=== PATIENT | female | born 1960 | race Caucasian/White ===

== ENCOUNTER 2016-09-21 15:10 | Emergency (ER) | payer OTHER ==
[~2016-09-21] VITALS: Ht 152.4 cm; Wt 82.4 kg
[~2016-09-21 15:10] MED LIST: MELO15TA3 PO; NXM/40 PO; SIMV40TA2 PO
[2016-09-21 15:12] VITALS: TEMP 36.5; Ht 152.4 cm; Wt 82.4 kg
--- NOTE | 2016-09-21 15:35 | EMERGENCY ROOM VISIT NOTE ---
History Report prepared by Jm: Charlotte Sorenson Under the Supervision of: Dr. Jb Summers M.D. First contact with patient: 15:17 Chief Complaint: HEAD PAIN Stated Complaint: HEAD, NECK, ELBOW PAIN, N, RINGING IN BOTH EARS History of Present Illness The patient is a 56 year old female who presents to the Emergency Room with complaints of persistent headache starting 1330 today. The patient was at work today when she went to sit down in a chair. The back of the chair broke off the she fell backwards onto the concrete ground. She remembers seeing some lights and woke up on her stomach. She has some ringing in her ears and pain on the back of her neck. She has a headache which is abnormal for her. She has elbow pain, some dizziness, and nausea. She denies any vomiting. She daughter reports that she seems quieter. She denies any vision changes, chest pain, SOB, or pain and swelling in the arms. She did have some abdominal pain at first, but does not anymore. Her tetanus is up to date. Source of History: patient, family Onset: 1330 today Position: head Quality: ache Timing: other (persistent) Associated Symptoms: + nausea, + neck pain, No SOB, No chest pain Note: Pt reports ringing in ears, elbow pain, dizziness. Pt denies vision changes, pain or swelling in arms. Review of Systems See HPI for pertinent positives & negatives. A total of 10 systems reviewed and were otherwise negative. Past Medical & Surgical Medical Problems: (1) Acid reflux (2) High cholesterol Old medical records were reviewed. Nurse's notes were reviewed and I agree with. Family History Diabetes mellitus FH: heart disease FHx: cancer Social History Smoking Status: Never Smoker Alcohol Use: none Marital Status: single Housing Status: lives alone Occupation Status: employed Current/Historical Medications No Active Prescriptions or Reported Meds Allergies Coded Allergies: Tramadol (Unverified Allergy, Intermediate, [employer] [place], 02/25/10) Physical Exam Vital Signs Date Time Temp Pulse Resp B/P Pulse Ox O2 Delivery O2 Flow Rate FiO2 09/21/16 17:06 64 18 128/77 97 09/21/16 15:12 36.5 69 18 160/98 98 Room Air Physical Exam General: Non ill appearing middle aged female, no acute distress, awake and oriented x3, GCS 15. Well developed well nourished, breathing comfortably on room air. Normal speech HEENT: Normal cephalic atraumatic. Pupils are equal round and reactive to light. Extraocular movements are intact. Oropharynx is pink with moist mucous membranes. No swelling of the mouth lips or tongue. Neck: Supple with a midline trachea. No meningeal signs or stiffness, no JVD or bruits. No Stridor. Chest: Clear to auscultation bilaterally. No wheezes or rhonchi. No increased work of breathing. Heart: regular rate and rhythm. Abdomen: Soft nontender, nondistended without rebound guarding or rigidity. Extremities: No cyanosis clubbing or edema. No calf tenderness or assymetry. Minimal tenderness to the left elbow with palpation and movement. Spine/Back. Mildly tender to the lower cervical spine. No CVA tenderness Skin: Good turgor without rashes. Neurologic exam: Cranial nerves two through 12 are intact. Motor and sensation are intact and symmetrical throughout. Medical Decision & Procedures ER Provider Diagnostic Interpretation: X-ray results as stated below per interpretation by me and the radiologist. Radiology results as stated below per my review and radiologist interpretation: LEFT ELBOW 3 VIEWS CLINICAL HISTORY: Left elbow injury. FINDINGS: 3 views of the left elbow are obtained. No prior studies are available for comparison at the time of dictation. The skeletal structures are well mineralized. No fracture is seen. A lucency projecting over the medial humeral condyle on the AP view likely represents a skinfold. The joint spaces of the elbow are well-maintained. Minimal degenerative spurring is noted along the radial head. There is no joint effusion. The overlying soft tissues are within normal limits. IMPRESSION: There is no radiographic evidence of left elbow fracture. Electronically signed by: Dougie Horvath M.D. 09/21/2016 4:05 PM Dictated Date/Time: 09/21/2016 4:[address] DOSE: HISTORY: Trauma. Pain. eval for trauma TECHNIQUE: Multiaxial CT images of the cervical spine were performed and reformatted in the sagittal and coronal plane without the use of contrast. COMPARISON: None. FINDINGS: No fractures. No subluxation. Prevertebral soft tissues and the C1-C2 interval are intact. No pneumothorax. IMPRESSION: No fractures within the cervical spine. Electronically signed by: Satish Back M.D. 09/21/2016 3:57 PM Dictated Date/Time: 09/21/2016 3:[address] SCAN OF THE BRAIN WITHOUT IV CONTRAST CLINICAL HISTORY: Trauma. Head injury. COMPARISON STUDY: CT of the brain dated 02/25/2010. TECHNIQUE: Unenhanced axial CT scan of the brain is performed from the vertex to the skull base. Automated dose control exposure was utilized. CT DOSE: 1271.55 mGy.cm FINDINGS: Brain parenchyma: The brain parenchyma is normal in appearance. There is no hemorrhage, mass effect, or evidence of acute territorial ischemia by CT criteria. [place]-white matter is preserved. No extra-axial fluid collection is seen. Ventricles, sulci, cisterns: Normal in configuration. Intracranial vasculature: The visualized intracranial vasculature at the skull base is normal in appearance. Calvarium: There is no depressed calvarial fracture. Sinuses and mastoids: The visualized paranasal sinuses are clear. The mastoid air cells are well pneumatized. Orbits: The bony orbits are grossly intact. IMPRESSION: No acute intracranial abnormality. Electronically signed by: Dougie Horvath M.D. 09/21/2016 3:56 PM Dictated Date/Time: 09/21/2016 3:55 PM ED Course 1522: Past medical records reviewed. The patient was evaluated in room B8, and a complete history and physical examination were performed. 1641: Upon reevaluation, the patient is resting comfortably. I discussed the results and treatment plan with her. She verbalized agreement of the treatment plan. The patient was discharged home. Medical Decision Differentials include, but are not limited to; concussion, intracranial hemorrhage, cervical fracture, cervical strain, orthopedic injury. This patient comes in after suffering a mechanical fall when her chair broke. She fell backwards and hit her head . She has pain mostly in her neck and left elbow and does have some mild concussive symptoms. Given the mechanism of injury and her symptoms, I did explain the risks and benefits and did order CAT scan of the head and neck as well as an elbow x-ray. She has nothing to suggest syncope or internal injuries. She has nothing to suggest cardiac disease. She was feeling better. CAT scans were unremarkable and blood work was unremarkable as well as EKG. She will rest and drink plenty of fluids. return if: Increasing pain, worsening symptoms, fever chills, any new problems or concerns. Follow-up with her doctor this week for recheck. Impression Primary Impression: Concussion Additional Impression: Left elbow contusion Scribe Attestation The scribe's documentation has been prepared under my direction and personally reviewed by me in its entirety. I confirm that the note above accurately reflects all work, treatment, procedures, and medical decision making performed by me. Departure Information Dispostion Home / Self-Care Prescriptions No Active Prescriptions or Reported Meds Referrals No Doctor, Assigned (PCP) Forms HOME CARE DOCUMENTATION FORM, IMPORTANT VISIT INFORMATION, WORK / SCHOOL INSTRUCTIONS Patient Instructions [facility] Additional Instructions Rest. Ice intermittently. Use ibuprofen 400 mg every 6 hours as needed for pain. Take with food Return if: Increasing pain, numbness or weakness, not acting like self, any new problems or concerns Avoid strenuous activity or any further trauma to her head Follow-up with your doctor for recheck in the next couple days or return here if symptoms worsen Problem Qualifiers
--- NOTE | 2016-09-21 15:58 | DIAGNOSTIC IMAGING REPORT ---
CT SCAN OF THE BRAIN WITHOUT IV CONTRAST CLINICAL HISTORY: Trauma. Head injury. COMPARISON STUDY: CT of the brain dated 02/25/2010. TECHNIQUE: Unenhanced axial CT scan of the brain is performed from the vertex to the skull base. Automated dose control exposure was utilized. CT DOSE: 1271.55 mGy.cm FINDINGS: Brain parenchyma: The brain parenchyma is normal in appearance. There is no hemorrhage, mass effect, or evidence of acute territorial ischemia by CT criteria. [place]-white matter is preserved. No extra-axial fluid collection is seen. Ventricles, sulci, cisterns: Normal in configuration. Intracranial vasculature: The visualized intracranial vasculature at the skull base is normal in appearance. Calvarium: There is no depressed calvarial fracture. Sinuses and mastoids: The visualized paranasal sinuses are clear. The mastoid air cells are well pneumatized. Orbits: The bony orbits are grossly intact. IMPRESSION: No acute intracranial abnormality. Electronically signed by: Dougie Horvath M.D. 09/21/2016 3:56 PM Dictated Date/Time: 09/21/2016 3:55 PM
--- NOTE | 2016-09-21 15:58 | DIAGNOSTIC IMAGING REPORT ---
CERVICAL SPINE CT CT DOSE: HISTORY: Trauma. Pain. eval for trauma TECHNIQUE: Multiaxial CT images of the cervical spine were performed and reformatted in the sagittal and coronal plane without the use of contrast. COMPARISON: None. FINDINGS: No fractures. No subluxation. Prevertebral soft tissues and the C1-C2 interval are intact. No pneumothorax. IMPRESSION: No fractures within the cervical spine. Electronically signed by: Satish Back M.D. 09/21/2016 3:57 PM Dictated Date/Time: 09/21/2016 3:56 PM
--- NOTE | 2016-09-21 16:06 | DIAGNOSTIC IMAGING REPORT ---
LEFT ELBOW 3 VIEWS CLINICAL HISTORY: Left elbow injury. FINDINGS: 3 views of the left elbow are obtained. No prior studies are available for comparison at the time of dictation. The skeletal structures are well mineralized. No fracture is seen. A lucency projecting over the medial humeral condyle on the AP view likely represents a skinfold. The joint spaces of the elbow are well-maintained. Minimal degenerative spurring is noted along the radial head. There is no joint effusion. The overlying soft tissues are within normal limits. IMPRESSION: There is no radiographic evidence of left elbow fracture. Electronically signed by: Dougie Horvath M.D. 09/21/2016 4:05 PM Dictated Date/Time: 09/21/2016 4:03 PM
[2016-09-21 17:06] VITALS: BP 128/77; PULSE 64; O2SAT 97
== END 2016-09-21 17:09 | disposition home or self-care (01) ==
LOC: C.EDB 15:12
DX: S06.0X0A Concussion without loss of consciousness, initial encounter (principal); S50.02XA Contusion of left elbow, initial encounter; W07.XXXA Fall from chair, initial encounter; Y92.89 Other specified places as the place of occurrence of the external cause; Y99.0 Civilian activity done for income or pay; K21.9 Gastro-esophageal reflux disease without esophagitis; E78.00 Pure hypercholesterolemia, unspecified; Z83.3 Family history of diabetes mellitus; Z82.49 Family history of ischemic heart disease and other diseases of the circulatory system; Z80.9 Family history of malignant neoplasm, unspecified

== ENCOUNTER → 2017-06-28 | Outpatient (CLI) | payer OTHER ==
[2017-06-28 13:23] LABS: ALBUMIN 3.6 gm/dl (3.4-5.0); ALT/SGPT 52 U/L (12-78); AST/SGOT 19 U/L (15-37); BLOOD UREA NITROGEN 12 mg/dl (7-18); CALCIUM 8.4 mg/dl (8.5-10.1); CARBON DIOXIDE 25 mmol/L (21-32); CREATININE 0.89 mg/dl (0.60-1.20); GLUCOSE,FASTING 103 mg/dl (70-99); POTASSIUM 4.1 mmol/L (3.5-5.1); SODIUM 139 mmol/L (136-145)
[2017-06-28 13:36] LABS: ALKALINE PHOSPHATASE 73 U/L (45-117); CHOLESTEROL 284 mg/dl (0-200); LDL CHOLESTEROL CALCULATED 218 mg/dl; TOTAL PROTEIN 7.4 gm/dl (6.4-8.2)
== END | disposition home or self-care (01) ==
LOC: C.LABPBG 07:37
PROVIDERS: ATTEND Physician Assistant
DX: Z00.00 Encounter for general adult medical examination without abnormal findings (principal); Z85.850 Personal history of malignant neoplasm of thyroid

== ENCOUNTER → 2017-07-28 | Outpatient (CLI) | payer OTHER ==
--- NOTE | 2017-08-01 07:34 | MAMMOGRAPHY REPORT ---
BILATERAL DIGITAL SCREENING MAMMOGRAM TOMOSYNTHESIS WITH CAD: 07/28/2017 CLINICAL HISTORY: Routine screening. TECHNIQUE: Breast tomosynthesis in addition to standard 2D mammography was performed. Current study was also evaluated with a Computer Aided Detection (CAD) system. COMPARISON: Comparison is made to exams dated: 07/15/2014 mammogram, 07/11/2013 mammogram, 06/14/2012 m ammogram, 08/10/2010 mammogram, and 06/24/2009 mammogram - [facility]. BREAST COMPOSITION: The tissue of both breasts is heterogeneously dense, which may obscure small mas ses. FINDINGS: No suspicious masses, calcifications, or areas of architectural distortion are noted in ei ther breast. There has been no significant interval change compared to prior exams. A linear scar ma rker denotes a scar on the right upper outer breast. IMPRESSION: ACR BI-RADS CATEGORY 2: BENIGN There is no mammographic evidence of malignancy. A 1 year screening mammogram is recommended. The pa tient will receive written notification of the results. Approximately 10% of breast cancers are not detected with mammography. A negative mammographic report should not delay biopsy if a clinically suggestive mass is present. Stefani Nelson M.D. ah/:07/29/2017 16:28:52 Finger Grip Machine Operator: Caprice LOVE(R)(M), [facility] letter sent: Normal 1/2 BI-RADS Code: ACR BI-RADS Category 2: Benign
== END | disposition home or self-care (01) ==
LOC: C.MAMM 13:19
PROVIDERS: ATTEND Physician Assistant
DX: Z12.31 Encounter for screening mammogram for malignant neoplasm of breast (principal)

== ENCOUNTER → 2017-08-25 | Outpatient (CLI) | payer OTHER | END | disposition home or self-care (01) | LOC: C.LABPBG 14:16 | PROVIDERS: ATTEND Family Medicine | DX: Z85.850 Personal history of malignant neoplasm of thyroid (principal) ==

== ENCOUNTER → 2017-09-02 | Outpatient (CLI) | payer OTHER ==
--- NOTE | 2017-09-02 15:17 | DIAGNOSTIC IMAGING REPORT ---
SOFT TISS HEAD/NECK-THYROID CLINICAL HISTORY: 57 years-old Female presenting with Z85.850 History of thyroid [id number]. TECHNIQUE: Real-time grayscale and color Doppler ultrasound imaging of the thyroid and base of the neck was performed. COMPARISON: 12/06/2012. FINDINGS: Right lobe: Status post right thyroidectomy. No suspicious soft tissue in the operative bed. Left lobe: Normal echogenicity and echotexture. The left lobe of the thyroid measures 4.5 x 2.0 x 1.8 cm. No parenchymal hyperemia. No nodules. Isthmus: The isthmus measures 6 mm in thickness. No parenchymal hyperemia. Index nodule(s) enumerated below: 1. Isthmic solid hyperechoic circumscribed round nodule, measuring 1.1 x 1.0 x 0.8 cm. No calcification. (Low suspicion) IMPRESSION: 1. Postsurgical changes of right thyroidectomy or no suspicious recurrent soft tissue in the operative bed. 2. 1.1 cm low suspicion isthmic nodule new since 2012. This does not meet [place] [employer] criteria for fine-needle aspiration at this time. Continued follow-up recommended. Electronically signed by: Joaquín Ramos M.D. 09/02/2017 3:15 PM Dictated Date/Time: 09/02/2017 3:11 PM
== END | disposition home or self-care (01) ==
LOC: C.ULTR 14:29
PROVIDERS: ATTEND Family Medicine
DX: Z85.850 Personal history of malignant neoplasm of thyroid (principal)